=== PATIENT | male | born 1975 | race Caucasian/White ===

== ENCOUNTER → 2024-10-06 07:46 | Outpatient (CLI) | payer OTHER, SELFPAY ==
--- NOTE | 2024-10-06 07:51 | DI.RAD.S_ITS ---
PROCEDURE: XR FOOT RT 2V INDICATIONS: FOOT PAIN TECHNIQUE: 2 views of the foot were acquired. COMPARISON: [facility], CR, XR FOOT LT 2V, 10/06/2024, 7:51. FINDINGS: Bones: No definite acute fractures or dislocations. Mild osteoarthritic changes are noted at 1st MTP joint. There is linear lucency over dorsal aspect of navicular bone extending to talar navicular joint space, a nondisplaced fracture cannot be excluded. No bony erosive changes are seen. No suspicious bony lesions. Soft tissues: No tibiotalar joint effusion. Achilles tendon appears normal. IMPRESSION: Radiolucency involving dorsal aspect of navicular bone as described above, a nondisplaced intra-articular fracture cannot be excluded suggest clinical correlation. No other fracture or dislocation. Mild 1st MTP joint osteoarthritis. Dictated by: Cricket Rosado M.D. on 10/06/2024 at 11:01 Approved by: Cricket Rosado M.D. on 10/06/2024 at 11:02
--- NOTE | 2024-10-06 07:52 | DI.RAD.S_ITS ---
PROCEDURE: XR FOOT LT 2V INDICATIONS: FOOT PAIN TECHNIQUE: 2 views of the foot were acquired. COMPARISON: None. FINDINGS: Bones: No fractures or dislocations. There is moderate hallux valgus. Osteoarthritic changes are noted at 1st MTP joint. Well-defined plantar calcaneal enthesophyte is seen. Nonspecific subcortical cystic area involving medial aspect of 1st metatarsal head. No suspicious bony lesions. Bipartite medial sesamoid of 1st metatarsal head is seen. Soft tissues: Mild soft tissue swelling over medial aspect of 1st metatarsal head is seen. No tibiotalar joint effusion. Achilles tendon appears normal. IMPRESSION: 1. Moderate hallux valgus. No acute fracture or dislocation. 2. Moderate 1st MTP joint osteoarthritis. Radiolucency involving medial aspect of 1st metatarsal head with overlying soft tissue swelling. Erosion secondary to inflammatory arthropathy such as gout cannot be excluded suggest clinical correlation. Well-defined plantar calcaneal enthesophyte. Dictated by: Cricket Rosado M.D. on 10/06/2024 at 10:59 Approved by: Cricket Rosado M.D. on 10/06/2024 at 11:01
== END ==
PROVIDERS: Referring Provider Chiropractor; Visit Provider Chiropractor
DX: M21.41 Flat foot [pes planus] (acquired), right foot (principal); M21.42 Flat foot [pes planus] (acquired), left foot; M19.072 Primary osteoarthritis, left ankle and foot; M19.071 Primary osteoarthritis, right ankle and foot; M20.12 Hallux valgus (acquired), left foot; M77.32 Calcaneal spur, left foot; M79.89 Other specified soft tissue disorders; M85.872 Other specified disorders of bone density and structure, left ankle and foot
CPT/HCPCS: 73620